=== PATIENT | female | born 1965 | race Caucasian/White ===

== ENCOUNTER → 2018-09-13 18:44 | Outpatient (CLI) | payer OTHER, SELFPAY | PROVIDERS: PCP Family Medicine; Visit Provider Family Medicine | DX: G47.33 Obstructive sleep apnea (adult) (pediatric) (principal); R06.83 Snoring | CPT/HCPCS: 95806 ==

== ENCOUNTER → 2021-11-01 06:42 | Outpatient (CLI) | payer OTHER, SELFPAY ==
[2021-10-31 22:13] LABS: Basophils % 0.8 % (0.1-2.0); Eosinophils # 0.2 K/mm3 (0.0-0.4); Eosinophils % 2.7 % (0.1-12.0); Hematocrit 42.6 % (37.0-47.0); Hemoglobin 14.2 g/dL (12.2-16.2); Lymphocytes # 2.2 K/mm3 (0.7-4.5); Lymphocytes % 39.3 % (10-50); Mean Corpuscular HGB Conc 33.3 g/dL (31.8-35.4); Mean Corpuscular Volume 87.1 fl (81-99); Mean Platelet Volume 8.1 fl (7.4-10.4); Monocytes # 0.4 K/mm3 (0.1-1.0); Neutrophils # 2.8 K/mm3 (1.8-7.8); Neutrophils % 50.3 % (37.0-80.0); Platelet Count 331 K/mm3 (142-424); Red Blood Count 4.89 M/mm3 (4.20-5.40); Red Cell Distribution Width 12.9 % (11.5-17.5); White Blood Count 5.7 K/mm3 (4.8-10.8)
[2021-10-31 22:51] LABS: Alanine Aminotransferase 47 U/L (12-78); Albumin Level 4.6 g/dl (3.5-5.0); Albumin/Globulin Ratio 1.5 (1.1-1.8); Alkaline Phosphatase 52 U/L (38-126); Anion Gap 12.4 mEq/L (5-15); Aspartate Amino Transferase 35 U/L (14-36); Blood Urea Nitrogen 25 mg/dl (7-17); Calcium 9.7 mg/dl (8.4-10.2); Carbon Dioxide 28 mmol/L (22.0-30.0); Chloride 103 mmol/L (98-107); Chol/HDL Ratio 3.9 (1-3.5); Cholesterol 178 mg/dl (140-200); Estimated Glomerular Filt Rate 74 ml/min (>60); GFR (African American) 89 ML/MIN (>60); Glucose 134 mg/dl (74-100); HDL Cholesterol 46 mg/dl (40-60); Potassium 4.4 mmoL/L (3.5-5.1); Sodium 139 mmol/L (136-145); Total Protein,Serum 7.6 g/dl (6.3-8.2); Triglycerides 89 mg/dl (30-150); VLDL Cholesterol 18 mg/dL (0-40)
[2021-10-31 22:55] LABS: Hemoglobin A1C 6.8 % (4.0-6.0)
[2021-10-31 22:55] LABS: Bilirubin,Total 0.1 mg/dl (0.2-1.3)
[2021-10-31 23:02] LABS: Direct LDL Cholesterol 103.13 mg/dL (100-129)
[2021-10-31 23:21] LABS: Thyroid Stimulating Hormone 1.19 uIU/mL (0.465-4.68)
[2021-10-31 23:40] LABS: Vitamin B12 666 pg/mL (239-931)
[2021-11-01 03:43] LABS: 25-OH Vitamin D, Total 66.6 ng/mL (30-100)
[2021-11-02 08:25] LABS: Cytomegalovirus (CMV) Ab, IgM <30.0 AU/mL (0.0-29.9)
[2021-11-02 13:15] LABS: EBV Ab VCA, IgG >600.0 U/mL (0.0-17.9); EBV Ab VCA, IgM <36.0 U/mL (0.0-35.9)
[2021-11-03 02:25] LABS: Cytomegalovirus (CMV) Ab, IgG 0.74 U/mL (0.00-0.59)
== END ==
PROVIDERS: PCP Nurse Practitioner; Visit Provider Nurse Practitioner
DX: E78.5 Hyperlipidemia, unspecified (principal); R53.83 Other fatigue; E11.9 Type 2 diabetes mellitus without complications; E55.9 Vitamin D deficiency, unspecified; Z79.84 Long term (current) use of oral hypoglycemic drugs
CPT/HCPCS: 80053; 80061; 82306; 82607; 83036; 84443; 85025; 86644; 86645; 86664; 86665

== ENCOUNTER 2023-11-01 11:44 | Outpatient (CLI) | payer OTHER, SELFPAY ==
[2023-11-01 20:38] LABS: Creatinine,Urine Random 25 mg/dL (Not Estab.)
[2023-11-01 20:42] LABS: Microalbumin/Creatinine Ratio 82.4
== END 2023-11-01 23:59 | disposition home or self-care (01) ==
LOC: LAB.DROPOF 11-02 10:07
PROVIDERS: PCP Nurse Practitioner; Visit Provider Nurse Practitioner
DX: E11.9 Type 2 diabetes mellitus without complications (principal); Z79.84 Long term (current) use of oral hypoglycemic drugs; I10 Essential (primary) hypertension; E78.5 Hyperlipidemia, unspecified; E55.9 Vitamin D deficiency, unspecified
CPT/HCPCS: 82043; 82570

== ENCOUNTER 2024-02-21 21:03 | Outpatient (CLI) | payer OTHER, SELFPAY ==
[2024-02-21 21:22] LABS: Basophils # 0.1 K/mm3 (0-0.2); Basophils % 0.9 % (0.1-2.0); Eosinophils # 0.1 K/mm3 (0.0-0.4); Eosinophils % 0.8 % (0.1-12.0); Hematocrit 43.4 % (37.0-47.0); Hemoglobin 14.9 g/dL (12.2-16.2); Lymphocytes # 2.5 K/mm3 (0.7-4.5); Lymphocytes % 21.9 % (10-50); Mean Corpuscular HGB Conc 34.3 g/dL (31.8-35.4); Mean Corpuscular Hemoglobin 28.9 pg (27.0-31.2); Mean Corpuscular Volume 84.3 fl (81-99); Mean Platelet Volume 8.2 fl (7.4-10.4); Monocytes # 0.7 K/mm3 (0.1-1.0); Monocytes % 6.2 % (1.7-9.3); Neutrophils % 70.2 % (37.0-80.0); Platelet Count 322 K/mm3 (142-424); Red Blood Count 5.16 M/mm3 (4.20-5.40); White Blood Count 11.3 K/mm3 (4.8-10.8)
[2024-02-21 21:44] LABS: Alanine Aminotransferase 45 U/L (12-78); Albumin Level 4.8 g/dl (3.5-5.0); Albumin/Globulin Ratio 1.7 (1.1-1.8); Alkaline Phosphatase 65 U/L (38-126); Anion Gap 15.6 mEq/L (5-15); Aspartate Amino Transferase 30 U/L (14-36); Bilirubin,Total 0.7 mg/dl (0.2-1.3); Blood Urea Nitrogen 16 mg/dl (7-17); Calcium 9.6 mg/dl (8.4-10.2); Carbon Dioxide 25 mmol/L (22.0-30.0); Chloride 101 mmol/L (98-107); Chol/HDL Ratio 3.1 (1-3.5); Cholesterol 177 mg/dl (140-200); Estimated Glomerular Filt Rate 86 ml/min (>60); GFR (African American) 104 ML/MIN (>60); Globulin 2.9 g/dL (1.3-3.2); Glucose 113 mg/dl (74-100); HDL Cholesterol 57 mg/dl (40-60); Potassium 3.6 mmoL/L (3.5-5.1); Sodium 138 mmol/L (136-145); Total Protein,Serum 7.7 g/dl (6.3-8.2); Triglycerides 200 mg/dl (30-150); VLDL Cholesterol 40 mg/dL (0-40)
[2024-02-21 21:50] LABS: Hemoglobin A1C 7.8 % (4.0-6.0)
[2024-02-21 21:55] LABS: Direct LDL Cholesterol 105.51 mg/dL (100-129)
[2024-02-21 22:02] LABS: 25-OH Vitamin D, Total 49.2 ng/mL (30-100)
[2024-02-21 22:15] LABS: Thyroid Stimulating Hormone 0.84 uIU/mL (0.465-4.68)
[2024-02-21 22:34] LABS: Vitamin B12 703 pg/mL (239-931)
== END 2024-02-21 23:59 | disposition home or self-care (01) ==
LOC: LAB.DROPOF 21:04
PROVIDERS: PCP Nurse Practitioner; Visit Provider Nurse Practitioner
DX: E78.5 Hyperlipidemia, unspecified (principal); E11.9 Type 2 diabetes mellitus without complications; I10 Essential (primary) hypertension; E55.9 Vitamin D deficiency, unspecified; Z79.84 Long term (current) use of oral hypoglycemic drugs
CPT/HCPCS: 80050; 80053; 80061; 82306; 82607; 83036; 84443; 85025

== ENCOUNTER 2024-08-07 09:55 | Outpatient (CLI) | payer OTHER, SELFPAY | END 2024-08-07 23:59 | disposition home or self-care (01) | LOC: LAB.DROPOF 08-08 12:33 | PROVIDERS: PCP Nurse Practitioner Family; Visit Provider Nurse Practitioner Family | DX: M54.50 Low back pain, unspecified (principal) | CPT/HCPCS: 87086 ==